=== PATIENT | male | born 1960 | race African-American/Black ===

== ENCOUNTER 2019-11-28 08:19 | Inpatient (IN) | payer OTHER ==
[~2019-11-28] VITALS: Ht 195.6 cm; Wt 65.3 kg
[2019-11-28 09:04] LABS: BASOPHILS % 0.7 % (0.0-2.0); EOSINOPHILS % 1.8 % (0.0-5.0); HEMATOCRIT. 42.4 % (42.0-52.0); HEMOGLOBIN. 13.7 g/dL (14.0-18.0); LYMPHOCYTES % 11.5 % (20.0-50.0); MEAN CORPUSCULAR HEMOGLOBIN 28.5 pg (28.0-32.0); MEAN PLATELET VOLUME 7.1 fl (7.4-10.4); MONOCYTES % 6.9 % (2.0-8.0); NEUTROPHILS % 79.1 % (40.0-76.0); PLATELET 302 x1000/uL (130-400); RED BLOOD CELL COUNT 4.82 mill/uL (4.7-6.1); RED CELL DISTRIBUTION WIDTH 15.1 % (11.6-14.6)
[2019-11-28 09:11] LABS: CHLORIDE 103 mEq/L (98-107)
[2019-11-28 09:15] LABS: ETHANOL BLOOD < 10 mg/dL
[2019-11-28] MEDS ORDERED: SODIUM CHLORIDE 0.9% 1,000 ML IV ONE (09:15)
[2019-11-28 09:36] LABS: CLARITY URINE CLEAR (CLEAR); COLOR URINE DK YELLOW (YELLOW); KETONES URINE NEGATIVE (NEGATIVE); LEUKOCYTE ESTERASE URINE TRACE (NEGATIVE); NITRITE URINE POSITIVE (NEGATIVE); OCCULT BLOOD URINE TRACE (NEGATIVE); PROTEIN URINE 2+ (NEGATIVE); SPECIFIC GRAVITY URINE 1.031 (1.005-1.030)
[2019-11-28 09:50] LABS: PHENCYCLIDINE URINE SCREEN NEGATIVE (NEGATIVE)
[2019-11-28 09:51] LABS: *AMPHETAMINES SCREEN URINE NEGATIVE (NEGATIVE); *BARBITURATES SCREEN URINE NEGATIVE (NEGATIVE); *BENZODIAZEPINES SCREEN URINE PRESUMTIVE POSITIVE (NEGATIVE); *COCAINE SCREEN URINE NEGATIVE (NEGATIVE); CANNABINOID URINE SCREEN NEGATIVE (NEGATIVE); METHADONE URINE SCREEN NEGATIVE (NEGATIVE)
[2019-11-28 09:52] LABS: OPIATES URINE SCREEN NEGATIVE (NEGATIVE)
[2019-11-28] MEDS ORDERED: LORAZEPAM 2MG/ML CPJ IV ONE (10:15)
[2019-11-28] MEDS ORDERED: LEVETIRACETAM 1000MG/100ML 100 ML IV ONE (11:00)
[2019-11-28] MEDS ORDERED: CEFTRIAXONE 1 G PREMIX 50 ML IV ONE (11:00)
[2019-11-28 12:25] VITALS: BP 137/94
[2019-11-28] MEDS ORDERED: ACETAMINOPHEN 325MG TABLET PO PRN (15:00)
[2019-11-28] MEDS ORDERED: LORAZEPAM 2MG/ML CPJ IM PRN (15:00)
[2019-11-28 15:43] VITALS: BP 168/108
[2019-11-28] MEDS ORDERED: CLONIDINE 0.1MG TABLET PO PRN ×2 (15:45→16:00)
[2019-11-28 20:00] VITALS: BP 132/84
[2019-11-28 20:05] LABS: CREATINE KINASE MB FRACTION 2.8 ng/mL (0.5-3.6)
[2019-11-28] MEDS: LEVETIRACETAM 500MG TABLET PO SCH (21:27)
[2019-11-29] VITALS: BP 142/92
[2019-11-29 04:00] VITALS: BP 140/84
[2019-11-29 08:00] VITALS: BP 125/85
[2019-11-29] MEDS: LEVETIRACETAM 500MG TABLET PO SCH (08:51)
[2019-11-29] MEDS: CEFTRIAXONE 1 G PREMIX 50 ML IV SCH ×2 (10:57→11:00)
[2019-11-29 12:00] VITALS: BP 119/74
== END 2019-11-29 12:50 | disposition left against medical advice (07) | DRG 53 ==
LOC: ER 08:28 → 5WST 10:49 → EDBD 10:49 → ENRESERV 10:55 → CANRESERV 10:57 → CANBEDREQ 10:59 → ENRESERV 11:06
PROVIDERS: ADMIT Internal Medicine; ATTEND Internal Medicine
DX: R56.9 Unspecified convulsions (principal); E86.0 Dehydration; N39.0 Urinary tract infection, site not specified; Z53.29 Procedure and treatment not carried out because of patient's decision for other reasons
CPT/HCPCS: 36415; 71045; 80053; 80305; 80320; 81003; 82550; 82553; 84484; 85025; 99285; J0696; J1953; J2060; J7030; G0480